=== PATIENT | female | born 1955 | race African-American/Black ===

== ENCOUNTER → 2016-09-23 | Outpatient (CLI) | payer OTHER ==
--- NOTE | ~2016-09-23 | CR170 ---
[facility] A Service of [facility] RADIOLOGY TEXT RESULTS PATIENT: KANG MIRANDA LOCATION: [facility] : 59 UNIT #: [id number] AGE: [address]: Rolan Balbuena MD SEX: F ORDER DR: [id number] [facility] [address] [place], [place] [address] [id number] O MR#: [id number] Acc #: [id number] NAME: KANG MIRANDA : 1955 SEX: F STUDY DATE/TIME: 09/23/2016 14:41 UNIT: [facility] ROOM: STUDY DESCRIPTION: CR Knee 2 Views Rt Attending Physician: Rolan Balbuena M.D. Referring Physician: Rolan Balbuena M.D. Ordering Physician: Rolan Balbuena M.D. Primary Care Physician: Rolan Balbuena M.D. MEDICAL IMAGING REPORT This report is preliminary unless electronic signature is present EXAM Right knee, 2 views, 09/23/2016. HISTORY Right knee pain for 4 months with swelling and arthritis. FINDINGS Two views of the right knee demonstrate no fracture. There is small osteophytes and subchondral cyst formation involving the posterior aspect of the patella. There is no joint effusion. Soft tissue swelling is seen about the right knee. IMPRESSION 1. Degenerative change involving the patellofemoral joint. No evidence of fracture. 2. Mild soft tissue swelling about the right knee. Dictated by... Andi Finley M.D. THIS IS AN ELECTRONICALLY VERIFIED REPORT Andi Finley M.D. at 09/25/2016 6:17 AM SHY/jose enrique TD: 09/24/2016 09:30 JOB #: [id number] MEDICAL IMAGING REPORT Page 1 of 1 COPY
--- NOTE | ~2016-09-23 | CR169 ---
[facility] A Service of [facility] RADIOLOGY TEXT RESULTS PATIENT: KANG MIRANDA LOCATION: [facility] : 59 UNIT #: [id number] AGE: [address]: Rolan Balbuena MD SEX: F ORDER DR: [id number] [facility] [address] [place], [place] [address] [id number] O MR#: [id number] Acc #: [id number] NAME: KANG MIRANDA : 1955 SEX: F STUDY DATE/TIME: 09/23/2016 14:42 UNIT: [facility] ROOM: STUDY DESCRIPTION: CR Knee 2 Views Lt Attending Physician: Rolan Balbuena M.D. Referring Physician: Rolan Balbuena M.D. Ordering Physician: Rolan Balbuena M.D. Primary Care Physician: Rolan Balbuena M.D. MEDICAL IMAGING REPORT This report is preliminary unless electronic signature is present EXAM Left knee, 2 views, 09/23/2016. HISTORY Left knee pain for 4 months with swelling. No known injury. FINDINGS Two views of the left knee demonstrate no fracture. There is degenerative change with subchondral cyst formation and small osteophytes along the posterior aspect of the patella. The bones are otherwise normally mineralized. There is no joint effusion. Soft tissue swelling is seen about the left knee. IMPRESSION 1. Degenerative change involving the patellofemoral joint. No evidence of fracture. 2. Mild soft tissue swelling about the left knee. Dictated by... Andi Finley M.D. THIS IS AN ELECTRONICALLY VERIFIED REPORT Andi Finley M.D. at 09/25/2016 6:17 AM SHY/jose enrique TD: 09/24/2016 09:31 JOB #: [id number] MEDICAL IMAGING REPORT Page 1 of 1 COPY
== END | disposition home or self-care (01) ==
LOC: CRAD 14:17
DX: M25.561 Pain in right knee (principal); M25.562 Pain in left knee; M25.461 Effusion, right knee; M25.462 Effusion, left knee
CPT/HCPCS: 73560